=== PATIENT | female | born 1995 | race Caucasian/White ===

== ENCOUNTER 2020-07-19 18:23 | Emergency (ER) | payer MEDICAID, OTHER ==
[~2020-07-19 18:23] MED LIST: PNV1TABL4 PO
--- NOTE | 2020-07-19 18:25 | NUR ---
PT ELOPED AFTER [facility] TRANSFERRED PT TO ROOM. STEADY GAIT.
== END 2020-07-19 21:49 ==
LOC: ED 19:00
DX: Z53.21 Procedure and treatment not carried out due to patient leaving prior to being seen by health care provider (principal)